=== PATIENT | female | born 1960 | race Caucasian/White ===

== ENCOUNTER 2016-03-01 16:16 | Emergency (ER) | payer MEDICAID ==
[~2016-03-01] VITALS: Ht 170.2 cm; Wt 81.6 kg
[2016-03-01 17:01] VITALS: BP 150/78
[2016-03-01] MEDS ORDERED: ONDANSETRON HCL 4 MG/2 ML VIAL IM ONE (17:15)
[2016-03-01] MEDS ORDERED: MORPHINE SULFATE 4 MG/ML SYRG IM ONE (17:15)
== END 2016-03-01 17:46 | disposition home or self-care (01) ==
LOC: ER 16:24
DX: S82.002D Unspecified fracture of left patella, subsequent encounter for closed fracture with routine healing (principal); E11.9 Type 2 diabetes mellitus without complications; I10 Essential (primary) hypertension; F17.210 Nicotine dependence, cigarettes, uncomplicated; Z88.2 Allergy status to sulfonamides; X58.XXXD Exposure to other specified factors, subsequent encounter
CPT/HCPCS: 96372; 99284; J2270; J2405

== ENCOUNTER 2016-03-26 14:09 | Emergency (ER) | payer MEDICAID ==
[~2016-03-26] VITALS: Ht 170.2 cm; Wt 79.4 kg
[2016-03-26] MEDS ORDERED: KETOROLAC TROMETH 60MG/2ML VIAL IM ONE (15:15)
[2016-03-26 15:30] VITALS: BP 140/85
== END 2016-03-26 16:10 | disposition home or self-care (01) ==
LOC: ER 14:09
DX: S80.01XA Contusion of right knee, initial encounter (principal); W19.XXXA Unspecified fall, initial encounter; Y93.89 Activity, other specified; Y99.8 Other external cause status; Y92.89 Other specified places as the place of occurrence of the external cause; E11.9 Type 2 diabetes mellitus without complications; I10 Essential (primary) hypertension; F17.210 Nicotine dependence, cigarettes, uncomplicated; Z88.6 Allergy status to analgesic agent; Z88.7 Allergy status to serum and vaccine
CPT/HCPCS: 73562; 96372; 99284; J1885

== ENCOUNTER 2016-08-11 18:28 | Emergency (ER) | payer MEDICAID ==
[~2016-08-11] VITALS: Ht 170.2 cm; Wt 91.2 kg
[2016-08-11 20:48] VITALS: BP 160/86
[2016-08-11] MEDS ORDERED: HYDROcodone-ACET 10/325MG TAB PO ONE (21:15)
[2016-08-11] MEDS ORDERED: KETOROLAC TROMETH 60MG/2ML VIAL IM ONE (21:45)
== END 2016-08-11 23:30 | disposition home or self-care (01) ==
LOC: ER 18:32
DX: S80.02XA Contusion of left knee, initial encounter (principal); E11.40 Type 2 diabetes mellitus with diabetic neuropathy, unspecified; I10 Essential (primary) hypertension; F17.210 Nicotine dependence, cigarettes, uncomplicated; Z88.8 Allergy status to other drugs, medicaments and biological substances; Z88.7 Allergy status to serum and vaccine; Z90.710 Acquired absence of both cervix and uterus; Z87.81 Personal history of (healed) traumatic fracture; W18.39XA Other fall on same level, initial encounter; Y93.89 Activity, other specified; Y92.89 Other specified places as the place of occurrence of the external cause; Y99.8 Other external cause status
CPT/HCPCS: 73562; 96372; 99284; J1885

== ENCOUNTER 2016-12-11 18:45 | Emergency (ER) | payer MEDICAID ==
[~2016-12-11] VITALS: Ht 170.2 cm; Wt 83.9 kg
[2016-12-11 19:12] VITALS: BP 182/88
[2016-12-11] MEDS ORDERED: KETOROLAC TROMETH 60MG/2ML VIAL IM ONE (22:30)
[2016-12-15] MEDS ORDERED: BUSP15TA60 PO (08:46)
[2016-12-15] MEDS ORDERED: BACL10TA PO (08:47)
[2016-12-15] MEDS ORDERED: LURA40TA PO (08:51)
[2016-12-15] MEDS ORDERED: INSLANTI SC (08:52)
[2016-12-15] MEDS ORDERED: TRAZ50TA2 PO (08:53)
[2016-12-15] MEDS ORDERED: FLUO-125 PO (08:57)
[2016-12-15] MEDS ORDERED: LISI10TA6 PO (08:57)
[2016-12-15] MEDS ORDERED: INSLISPI SC (08:58)
[2016-12-15] MEDS ORDERED: ALPR-229 PO (11:13)
[2016-12-15] MEDS ORDERED: CALC667C PO (11:13)
== END 2016-12-11 23:10 | disposition home or self-care (01) ==
LOC: ER 18:45
DX: S00.03XA Contusion of scalp, initial encounter (principal); S20.229A Contusion of unspecified back wall of thorax, initial encounter; E11.9 Type 2 diabetes mellitus without complications; I10 Essential (primary) hypertension; F17.210 Nicotine dependence, cigarettes, uncomplicated; Z90.49 Acquired absence of other specified parts of digestive tract; Z88.8 Allergy status to other drugs, medicaments and biological substances; W01.0XXA Fall on same level from slipping, tripping and stumbling without subsequent striking against object, initial encounter; Y93.89 Activity, other specified; Y92.89 Other specified places as the place of occurrence of the external cause; Y99.8 Other external cause status
CPT/HCPCS: 70450; 71010; 96372; 99284; J1885

== ENCOUNTER 2017-03-25 12:09 | Inpatient (IN) | payer MEDICAID ==
[~2017-03-25] VITALS: Ht 170.2 cm; Wt 90.3 kg
[~2017-03-25 12:09] MED LIST: ALPR-229 PO; BACL10TA PO; BUSP15TA60 PO; FLUO-125 PO; INSLANTI SC; INSLISPI SC; LISI-646 PO; LURA40TA PO; TRAZ50TA2 PO
[2017-03-25] MEDS ORDERED: SODIUM CHLORIDE 0.9% 1,000 ML IVB ONE (13:15)
[2017-03-25 13:16] LABS: Basophils # (auto) 0 uL; Basophils % (auto) 0.6 % (0.0-2.0); Eosinophils # (auto) 0 uL; Eosinophils % (auto) 0.7 % (0.0-7.0); Hematocrit 42.5 % (36.0-46.0); Hemoglobin 13.8 g/dL (12.2-16.2); Lymphocytes # (auto) 1.3 uL; Lymphocytes % (auto) 30.7 % (10.0-50.0); Mean Corpuscular Hemoglobin 28.4 pg (28.0-32.0); Mean Corpuscular Hgb Conc. 32.4 g/dL (32.0-36.0); Mean Corpuscular Volume 87.6 fL (80.0-100.0); Monocytes # (auto) 0.6 uL; Monocytes % (auto) 14.3 % (0.0-12.0); Neutrophils # (auto) 2.2 uL; Neutrophils % (auto) 53.7 % (37.0-80.0); Nucleated Red Blood Cells % 0.1 %; Platelet Count (auto) 275 10^3/uL (140-450); Red Blood Cells 4.85 10^6/uL (4.0-5.20); Red Cell Distribution Width 15.8 % (11.8-14.3); White Blood Cell 4.2 10^3/uL (4.4-10.8)
[2017-03-25 13:33] LABS: Alanine Aminotransferase 24 U/L (13-56); Albumin 2.9 g/dL (3.4-5.0); Alkaline Phosphatase 102 U/L (45-117); Anion Gap 5 (5-15); Aspartate Aminotransferase 17 U/L (15-37); Bilirubin, Total 0.1 mg/dL (0.2-1.0); Blood Alcohol < 3.0 mg/dL (0-5); Blood Urea Nitrogen 12 mg/dL (7-18); Calcium 8.2 mg/dL (8.5-10.1); Carbon Dioxide 24 mmol/L (21-32); Chloride 109 mmol/L (98-107); GFR African American 88 mL/min; GFR Non-African American 73 mL/min; Glucose 243 mg/dL (74-106); Magnesium 2.6 mg/dL (1.6-2.6); Potassium 4.5 mmol/L (3.5-5.1); Sodium 138 mmol/L (136-145); Total Protein 6.9 g/dL (6.4-8.2)
[2017-03-25 13:37] LABS: Acetaminophen < 2.0 ug/mL (10-30); Salicylate 2.8 mg/dL (2.8-20.0)
[2017-03-25 15:04] LABS: Urine Bacteria MOD /hpf (None Seen); Urine Blood Negative /uL (Negative); Urine Specific Gravity 1.006 (1.001-1.035); Urine WBC 2 /hpf (0 - 5)
[2017-03-25 15:39] LABS: Alcohol, Urine < 3.0 mg/dL (0-5); Amphetamine Screen, Urine NEGATIVE (NEGATIVE); Barbiturate Scree,Urine NEGATIVE (NEGATIVE); Cannabinoid Screen, Urine NEGATIVE (NEGATIVE); Cocaine Screen, Urine NEGATIVE (NEGATIVE); Opiate Scree,Urine NEGATIVE (NEGATIVE); Phencyclidine Screen, Urine NEGATIVE (NEGATIVE)
[2017-03-25 16:25] LABS: Benzodiazephine Screen, Urine POSITIVE (NEGATIVE)
[2017-03-25] MEDS ORDERED: ONDANSETRON HCL 4 MG/2 ML VIAL ONE (17:20)
[2017-03-25] MEDS ORDERED: ONDANSETRON HCL 4 MG/2 ML VIAL IV ONE (17:30)
[2017-03-25] MEDS ORDERED: DEXTROSE 50% SYRINGE 50 ML IV ONE (17:36)
[2017-03-25] MEDS ORDERED: DEXTROSE (50%) 50ML SYRG IV ONE (17:45)
[2017-03-25] MEDS ORDERED: KETOROLAC TROMETH 30 MG/ML 1ML VIAL IV ONE (18:15)
[2017-03-25] MEDS ORDERED: SODIUM CHLORIDE 0.9% 500 ML IV ONE (21:30)
[2017-03-25] MEDS: SODIUM CHLORIDE 0.9% 1,000 ML IV SCH (21:55)
[2017-03-25] MEDS: busPIRone HCL 10 MG TAB PO SCH (22:02)
[2017-03-25] MEDS: LISINOPRIL 20 MG TAB PO SCH (22:02)
[2017-03-25] MEDS: FAMOTIDINE 20 MG TAB PO SCH (22:02)
[2017-03-25 22:25] VITALS: BP 141/86
[2017-03-25] MEDS: ACETAMINOPHEN 325 MG TAB PO PRN (22:43)
[2017-03-25] MEDS: HYDROcodone-ACET 5/325MG TAB PO PRN (22:50)
[2017-03-25 22:57] VITALS: BP 141/86
[2017-03-26] VITALS (7 sets, daily range): BP systolic 141–170; BP diastolic 77–97
[2017-03-26] MEDS: TEMAZEPAM 15 MG CAP PO PRN ×2 (00:14→23:01)
[2017-03-26] MEDS ORDERED: LISI10TA6 PO (02:50)
[2017-03-26] MEDS ORDERED: IBUP800T24 PO (02:50)
[2017-03-26] MEDS ORDERED: OMEP20CA74 PO (02:50)
[2017-03-26] MEDS ORDERED: AMIT25TA9 PO (02:50)
[2017-03-26] MEDS ORDERED: INSLISPI SC (02:50)
[2017-03-26] MEDS ORDERED: CIPR-217 PO (02:50)
[2017-03-26] MEDS ORDERED: VARE1TAB PO (02:50)
[2017-03-26] MEDS ORDERED: GABA-339 PO (02:50)
[2017-03-26] MEDS: HYDROcodone-ACET 5/325MG TAB PO PRN ×2 (03:49→08:05)
[2017-03-26] MEDS ORDERED: PNEUMOCOCCAL VACC POLYS 25 MCG/0.5 ML VIAL IM ONE (06:00)
[2017-03-26 06:57] LABS: Basophils # (auto) 0 uL; Basophils % (auto) 0.5 % (0.0-2.0); Eosinophils # (auto) 0.1 uL; Hematocrit 42.2 % (36.0-46.0); Hemoglobin 13.9 g/dL (12.2-16.2); Lymphocytes # (auto) 1.1 uL; Lymphocytes % (auto) 20.2 % (10.0-50.0); Mean Corpuscular Hemoglobin 28.8 pg (28.0-32.0); Mean Corpuscular Hgb Conc. 32.9 g/dL (32.0-36.0); Mean Corpuscular Volume 87.5 fL (80.0-100.0); Monocytes # (auto) 0.6 uL; Monocytes % (auto) 10.2 % (0.0-12.0); Neutrophils # (auto) 3.8 uL; Neutrophils % (auto) 67.1 % (37.0-80.0); Platelet Count (auto) 291 10^3/uL (140-450); Red Blood Cells 4.83 10^6/uL (4.0-5.20); Red Cell Distribution Width 15.8 % (11.8-14.3); White Blood Cell 5.7 10^3/uL (4.4-10.8)
[2017-03-26 07:16] LABS: Albumin 2.9 g/dL (3.4-5.0)
[2017-03-26 07:22] LABS: Bilirubin, Total 0.2 mg/dL (0.2-1.0); Total Protein 6.8 g/dL (6.4-8.2)
[2017-03-26] MEDS: FAMOTIDINE 20 MG TAB PO SCH ×2 (09:53→22:51)
[2017-03-26] MEDS: ONDANSETRON HCL 4 MG/2 ML VIAL IV PRN ×2 (09:54→15:17)
[2017-03-26] MEDS: FLUoxetine HCL 20 MG CAP PO SCH (09:54)
[2017-03-26] MEDS: LISINOPRIL 20 MG TAB PO SCH ×2 (09:54→22:53)
[2017-03-26] MEDS: busPIRone HCL 10 MG TAB PO SCH ×2 (09:55→22:51)
[2017-03-26] MEDS: SODIUM CHLORIDE 0.9% 1,000 ML IV SCH ×3 (09:57→18:32)
[2017-03-26] MEDS ORDERED: DEXTROSE (50%) 50ML SYRG IV PRN (11:00)
[2017-03-26] MEDS ORDERED: SODIUM CHLORIDE 0.9% 1,000 ML IV SCH (11:15)
[2017-03-26 11:30] LABS: Potassium 4.5 mmol/L (3.5-5.1)
[2017-03-26] MEDS: ACCU-CHEK COMFORT CURVE STRIP VI SCH ×3 (11:39→22:53)
[2017-03-26] MEDS: InsuLIN REG 1unit/0.01ml Soln (100units/ml) SC SCH ×3 (11:39→22:53)
[2017-03-26] MEDS ORDERED: HYDROcodone-ACET 10/325MG TAB PO PRN (11:45)
[2017-03-26] MEDS: HYDROcodone-ACET 10/325MG TAB PO PRN ×3 (12:03→22:54)
[2017-03-26] MEDS: ACETAMINOPHEN 325 MG TAB PO PRN (17:41)
[2017-03-27] MEDS: SODIUM CHLORIDE 0.9% 1,000 ML IV SCH ×3 (01:00→13:15)
[2017-03-27] MEDS ORDERED: ALBUTEROL SULF 2.5 MG/0.5ML(0.5%) NEB SOLN NEB STA (02:54)
[2017-03-27] MEDS ORDERED: IBUPROFEN 600 MG TAB PO ONE (03:00)
[2017-03-27] MEDS: MORPHINE SULFATE 4 MG/ML SYR/VIAL IV PRN ×5 (03:24→20:28)
[2017-03-27 03:30] VITALS: BP 146/80
[2017-03-27] MEDS: DOXYCYCLINE HYC 100MG/250ML 250 ML IV SCH ×3 (03:49→22:27)
[2017-03-27 04:57] VITALS: BP 158/95
[2017-03-27] MEDS: InsuLIN REG 1unit/0.01ml Soln (100units/ml) SC SCH ×5 (06:38→22:00)
[2017-03-27] MEDS: ACCU-CHEK COMFORT CURVE STRIP VI SCH ×4 (06:38→21:28)
[2017-03-27 06:50] LABS: Basophils # (auto) 0 uL; Basophils % (auto) 0.4 % (0.0-2.0); Eosinophils # (auto) 0 uL; Eosinophils % (auto) 0.3 % (0.0-7.0); Hematocrit 39.3 % (36.0-46.0); Hemoglobin 12.9 g/dL (12.2-16.2); Lymphocytes # (auto) 1.2 uL; Lymphocytes % (auto) 17.7 % (10.0-50.0); Mean Corpuscular Hemoglobin 28.6 pg (28.0-32.0); Mean Corpuscular Hgb Conc. 32.8 g/dL (32.0-36.0); Mean Corpuscular Volume 87.3 fL (80.0-100.0); Monocytes # (auto) 0.6 uL; Monocytes % (auto) 8.3 % (0.0-12.0); Neutrophils # (auto) 4.8 uL; Neutrophils % (auto) 73.3 % (37.0-80.0); Nucleated Red Blood Cells % 0.1 %; Platelet Count (auto) 265 10^3/uL (140-450); Red Cell Distribution Width 15.4 % (11.8-14.3); White Blood Cell 6.6 10^3/uL (4.4-10.8)
[2017-03-27 07:10] LABS: BUN/Creatinine Ratio 11.1; Calcium 7.7 mg/dL (8.5-10.1); Potassium 4.5 mmol/L (3.5-5.1)
[2017-03-27] MEDS: FAMOTIDINE 20 MG TAB PO SCH ×2 (08:23→22:25)
[2017-03-27] MEDS: FLUoxetine HCL 20 MG CAP PO SCH (08:23)
[2017-03-27] MEDS: busPIRone HCL 10 MG TAB PO SCH ×2 (08:24→22:25)
[2017-03-27] MEDS: LISINOPRIL 20 MG TAB PO SCH ×2 (08:24→22:25)
[2017-03-27 09:00] VITALS: BP 153/75
[2017-03-27] MEDS: ALBUTEROL SULF 2.5 MG/0.5ML(0.5%) NEB SOLN NEB PRN (09:14)
[2017-03-27 13:00] VITALS: BP 162/86
[2017-03-27] MEDS ORDERED: cloNIDine HCL 0.1 MG TAB PO PRN (13:15)
[2017-03-27] MEDS: guaiFENesin-DM 100/10mg/5ml SYR PO PRN ×2 (13:30→21:25)
[2017-03-27] MEDS ORDERED: IPRATROPIUM BROM 0.5 MG/2.5ML INH SOL NEB PRN (13:30)
[2017-03-27 17:00] VITALS: BP 147/72
[2017-03-27 21:41] VITALS: BP 137/72
[2017-03-27] MEDS ORDERED: INSULIN LANTUS (GLARGINE) 1 /0.01ml (100units/ml) SC SCH (22:00)
[2017-03-28] MEDS: MORPHINE SULFATE 4 MG/ML SYR/VIAL IV PRN ×4 (00:33→12:37)
[2017-03-28] MEDS: guaiFENesin-DM 100/10mg/5ml SYR PO PRN (04:42)
[2017-03-28 05:00] VITALS: BP 159/73
[2017-03-28 05:58] LABS: BUN/Creatinine Ratio 10.3; Calcium 8.2 mg/dL (8.5-10.1); Potassium 4.4 mmol/L (3.5-5.1)
[2017-03-28] MEDS: ACCU-CHEK COMFORT CURVE STRIP VI SCH ×2 (06:40→11:54)
[2017-03-28] MEDS: InsuLIN REG 1unit/0.01ml Soln (100units/ml) SC SCH ×2 (06:40→11:54)
[2017-03-28] MEDS: SODIUM CHLORIDE 0.9% 1,000 ML IV SCH (06:40)
[2017-03-28 09:00] VITALS: BP 161/95
[2017-03-28] MEDS: ALBUTEROL SULF 2.5 MG/0.5ML(0.5%) NEB SOLN NEB PRN (09:07)
[2017-03-28] MEDS: FLUoxetine HCL 20 MG CAP PO SCH (09:58)
[2017-03-28] MEDS: FAMOTIDINE 20 MG TAB PO SCH (09:58)
[2017-03-28] MEDS: LISINOPRIL 20 MG TAB PO SCH (09:59)
[2017-03-28] MEDS: busPIRone HCL 10 MG TAB PO SCH (09:59)
[2017-03-28] MEDS: DOXYCYCLINE HYC 100MG/250ML 250 ML IV SCH (10:00)
[2017-03-28] MEDS ORDERED: AZIT500T PO (13:10)
[2017-03-28] MEDS ORDERED: LISI-646 PO (13:10)
[2017-03-28] MEDS ORDERED: ALBUAER3 IN (13:10)
[2017-03-28 13:21] VITALS: BP 147/85
[2017-03-28 14:30] VITALS: BP 140/88
[2017-03-28] MEDS: HYDROcodone-ACET 10/325MG TAB PO PRN (15:33)
== END 2017-03-28 16:25 | disposition home or self-care (01) | DRG 812 ==
LOC: ER 12:09 → EDUNIT# 12:09 → OVERFLOW 12:10 → WEST WING 22:25
PROVIDERS: ADMIT Nurse Practitioner; ATTEND Internal Medicine
DX: T42.4X1A Poisoning by benzodiazepines, accidental (unintentional), initial encounter (principal); G92 Toxic encephalopathy; E11.649 Type 2 diabetes mellitus with hypoglycemia without coma; E11.40 Type 2 diabetes mellitus with diabetic neuropathy, unspecified; F20.9 Schizophrenia, unspecified; I10 Essential (primary) hypertension; G89.29 Other chronic pain; M54.9 Dorsalgia, unspecified; F17.210 Nicotine dependence, cigarettes, uncomplicated; F31.9 Bipolar disorder, unspecified; F41.9 Anxiety disorder, unspecified; J20.9 Acute bronchitis, unspecified; M47.816 Spondylosis without myelopathy or radiculopathy, lumbar region; Z79.4 Long term (current) use of insulin; Z82.49 Family history of ischemic heart disease and other diseases of the circulatory system; Z90.710 Acquired absence of both cervix and uterus; Z88.7 Allergy status to serum and vaccine; Z79.899 Other long term (current) drug therapy; Z71.6 Tobacco abuse counseling; Z71.3 Dietary counseling and surveillance
CPT/HCPCS: 36415; 51702; 70450; 71045; 71046; 72131; 80048; 80053; 80307; 80320; 80329; 81001; 82962; 83036; 83605; 83735; 84484; 85025; 85379; 87040; 87070; 87205; 93005; 94640; 94761; 96361; 96374; 96375; J1815; J1885; J2405; J3490

== ENCOUNTER 2017-10-03 17:48 | Emergency (ER) | payer MEDICAID ==
[~2017-10-03] VITALS: Ht 170.2 cm; Wt 81.6 kg
[~2017-10-03 17:48] MED LIST changes: +ALBUAER3 IN; -ALPR-229 PO; +AMIT25TA9 PO; +AZIT500T PO; -BACL10TA PO; +CIPR-217 PO; +GABA-339 PO; +IBUP800T24 PO; -LURA40TA PO; +OMEP20CA74 PO; -TRAZ50TA2 PO; +VARE1TAB PO
[2017-10-03 19:00] LABS: Basophils # (auto) 0.1 uL; Basophils % (auto) 0.8 % (0.0-2.0); Eosinophils # (auto) 0.1 uL; Eosinophils % (auto) 0.9 % (0.0-7.0); Hematocrit 43.4 % (36.0-46.0); Hemoglobin 14.5 g/dL (12.2-16.2); Lymphocytes # (auto) 1.7 uL; Lymphocytes % (auto) 22.7 % (10.0-50.0); Mean Corpuscular Hemoglobin 29.5 pg (28.0-32.0); Mean Corpuscular Hgb Conc. 33.5 g/dL (32.0-36.0); Mean Corpuscular Volume 88.3 fL (80.0-100.0); Monocytes # (auto) 0.6 uL; Monocytes % (auto) 7.9 % (0.0-12.0); Neutrophils # (auto) 5.1 uL; Neutrophils % (auto) 67.7 % (37.0-80.0); Platelet Count (auto) 381 10^3/uL (140-450); Red Blood Cells 4.91 10^6/uL (4.0-5.20); White Blood Cell 7.6 10^3/uL (4.4-10.8)
[2017-10-03 19:19] LABS: Albumin 3.2 g/dL (3.4-5.0); Anion Gap 10 (5-15); Blood Urea Nitrogen 12 mg/dL (7-18); Calcium 8.5 mg/dL (8.5-10.1); Carbon Dioxide 23 mmol/L (21-32); Chloride 102 mmol/L (98-107); Glucose 336 mg/dL (74-106); Magnesium 2.1 mg/dL (1.6-2.6); Sodium 135 mmol/L (136-145)
[2017-10-03 19:22] LABS: Alanine Aminotransferase 22 U/L (13-56); Aspartate Aminotransferase 7 U/L (15-37); BUN/Creatinine Ratio 13.6; GFR African American 85 mL/min; GFR Non-African American 71 mL/min
[2017-10-03 19:27] LABS: Alkaline Phosphatase 109 U/L (45-117); Bilirubin, Total 0.4 mg/dL (0.2-1.0); Total Protein 7.3 g/dL (6.4-8.2)
[2017-10-03] MEDS ORDERED: SODIUM CHLORIDE 0.9% 2,450 ML IV ONE (19:45)
[2017-10-03] MEDS ORDERED: NALBUPHINE HCL 10 MG/1ml INJECTION IV ONE (21:30)
[2017-10-03] MEDS ORDERED: ONDANSETRON HCL 4 MG/2 ML VIAL IV ONE ×2 (21:30→22:45)
[2017-10-03] MEDS ORDERED: MORPHINE SULFATE 4 MG/ML SYR/VIAL IV ONE (22:45)
[2017-10-04 03:45] VITALS: BP 122/64
== END 2017-10-04 01:30 | disposition home or self-care (01) ==
LOC: EDBD 17:48 → ER 17:58
DX: E11.65 Type 2 diabetes mellitus with hyperglycemia (principal); M79.1 Myalgia; I10 Essential (primary) hypertension; Z90.710 Acquired absence of both cervix and uterus; Z88.8 Allergy status to other drugs, medicaments and biological substances; Z79.899 Other long term (current) drug therapy
CPT/HCPCS: 36415; 71045; 74176; 80053; 82962; 83690; 83735; 84484; 85025; 93005; 94761; 96361; 96374; 96375; 96376; 99285; J2270; J2300; J2405; J7030

== ENCOUNTER 2017-10-04 19:05 | Emergency (ER) | payer MEDICAID ==
[~2017-10-04] VITALS: Ht 162.6 cm; Wt 90.7 kg
[2017-10-04] MEDS ORDERED: NALBUPHINE HCL 10 MG/1ml INJECTION IV ONE (21:00)
[2017-10-04] MEDS ORDERED: SODIUM CHLORIDE 0.9% 1,000 ML IV ONE (21:00)
[2017-10-04 21:15] LABS: Basophils # (auto) 0 uL; Basophils % (auto) 0.3 % (0.0-2.0); Eosinophils # (auto) 0.1 uL; Eosinophils % (auto) 1.2 % (0.0-7.0); Hematocrit 40.5 % (36.0-46.0); Hemoglobin 13.5 g/dL (12.2-16.2); Lymphocytes # (auto) 1.8 uL; Lymphocytes % (auto) 28.2 % (10.0-50.0); Mean Corpuscular Hemoglobin 29.4 pg (28.0-32.0); Mean Corpuscular Hgb Conc. 33.3 g/dL (32.0-36.0); Mean Corpuscular Volume 88.5 fL (80.0-100.0); Monocytes # (auto) 0.5 uL; Monocytes % (auto) 8.7 % (0.0-12.0); Neutrophils # (auto) 3.9 uL; Neutrophils % (auto) 61.6 % (37.0-80.0); Nucleated Red Blood Cells % 0.1 %; Platelet Count (auto) 324 10^3/uL (140-450); Red Blood Cells 4.58 10^6/uL (4.0-5.20); Red Cell Distribution Width 14.9 % (11.8-14.3); White Blood Cell 6.3 10^3/uL (4.4-10.8)
[2017-10-04 21:22] LABS: Urine Bacteria NONE SEEN /hpf (None Seen); Urine Blood Negative /uL (Negative); Urine Specific Gravity 1.005 (1.001-1.035); Urine WBC 1 /hpf (0 - 5)
[2017-10-04 21:37] LABS: Albumin 2.9 g/dL (3.4-5.0); Bilirubin, Total 0.2 mg/dL (0.2-1.0); Calcium 8.3 mg/dL (8.5-10.1); Potassium 4.3 mmol/L (3.5-5.1); Total Protein 6.8 g/dL (6.4-8.2)
[2017-10-04] MEDS ORDERED: IOHEXOL 300 MG/ML 100ML BOTTLE IJ ONE (21:43)
[2017-10-04] MEDS ORDERED: GASTROGRAFIN 30 ML SOL ONE (21:43)
[2017-10-05 01:03] VITALS: BP 168/101
[2017-10-05 01:15] LABS: Alcohol, Urine < 3.0 mg/dL (0-5); Amphetamine Screen, Urine NEGATIVE (NEGATIVE); Barbiturate Scree,Urine NEGATIVE (NEGATIVE); Benzodiazephine Screen, Urine POSITIVE (NEGATIVE); Cannabinoid Screen, Urine NEGATIVE (NEGATIVE); Cocaine Screen, Urine NEGATIVE (NEGATIVE); Opiate Scree,Urine NEGATIVE (NEGATIVE); Phencyclidine Screen, Urine NEGATIVE (NEGATIVE)
== END 2017-10-05 01:21 | disposition left against medical advice (07) ==
LOC: EDBD 19:05 → ER 19:10
DX: R10.9 Unspecified abdominal pain (principal); F41.9 Anxiety disorder, unspecified; F32.9 Major depressive disorder, single episode, unspecified; E11.9 Type 2 diabetes mellitus without complications; F17.210 Nicotine dependence, cigarettes, uncomplicated; I10 Essential (primary) hypertension; F20.9 Schizophrenia, unspecified; R11.2 Nausea with vomiting, unspecified; F19.10 Other psychoactive substance abuse, uncomplicated; Z90.710 Acquired absence of both cervix and uterus
CPT/HCPCS: 36415; 74177; 80053; 80307; 81001; 83690; 85025; 96361; 96374; 99285; J2300; Q9963; Q9967

== ENCOUNTER 2018-03-21 11:51 | Emergency (ER) | payer MEDICAID ==
[~2018-03-21] VITALS: Ht 162.6 cm; Wt 81.6 kg
[2018-03-21] MEDS ORDERED: ONDANSETRON ODT 4 MG TAB PO ONE (12:15)
[2018-03-21] MEDS ORDERED: HYDROcodone-ACET 5/325MG TAB ONE (13:38)
[2018-03-21 14:20] VITALS: BP 146/79
[2018-03-21 15:07] LABS: INR 0.94 (0.9-1.15); Partial Thromboplastin Time 27.8 sec (23.78-33.04); Prothrombin Time 10.1 sec (9.27-12.13)
[2018-03-21] MEDS ORDERED: HYDROcodone-ACET 5/325MG TAB PO ONE (15:15)
[2018-03-21] MEDS ORDERED: KETOROLAC TROMETH 30 MG/ML 1ML VIAL ONE (15:23)
[2018-03-21] MEDS ORDERED: SODIUM CHLORIDE 0.9% 1,000 ML IV ONE (15:30)
[2018-03-21] MEDS ORDERED: KETOROLAC TROMETH 30 MG/ML 1ML VIAL IV ONE (15:30)
[2018-03-21 15:38] LABS: Basophils # (auto) 0.1 uL; Basophils % (auto) 0.8 % (0.0-2.0); Eosinophils # (auto) 0.1 uL; Eosinophils % (auto) 1.2 % (0.0-7.0); Hematocrit 51.1 % (36.0-46.0); Lymphocytes # (auto) 2.5 uL; Lymphocytes % (auto) 33.9 % (10.0-50.0); Mean Corpuscular Hemoglobin 28.9 pg (28.0-32.0); Mean Corpuscular Hgb Conc. 31.3 g/dL (32.0-36.0); Mean Corpuscular Volume 92.2 fL (80.0-100.0); Monocytes # (auto) 0.6 uL; Monocytes % (auto) 7.8 % (0.0-12.0); Neutrophils # (auto) 4.1 uL; Neutrophils % (auto) 56.3 % (37.0-80.0); Nucleated Red Blood Cells % 0.2 %; Platelet Count (auto) 254 10^3/uL (140-450); Red Blood Cells 5.54 10^6/uL (4.0-5.20); Red Cell Distribution Width 15.6 % (11.8-14.3); White Blood Cell 7.2 10^3/uL (4.4-10.8)
[2018-03-21 15:51] LABS: Urine Bacteria NONE SEEN /hpf (None Seen); Urine Blood Negative /uL (Negative); Urine Specific Gravity 1.005 (1.001-1.035); Urine WBC <1 /hpf (0 - 5)
[2018-03-21 17:32] LABS: Albumin 3.3 g/dL (3.4-5.0); Anion Gap 11 (5-15); Blood Urea Nitrogen 11 mg/dL (7-18); Calcium 8.6 mg/dL (8.5-10.1); Carbon Dioxide 23 mmol/L (21-32); Chloride 104 mmol/L (98-107); Glucose 237 mg/dL (74-106); Potassium 4.6 mmol/L (3.5-5.1); Sodium 138 mmol/L (136-145)
[2018-03-21 17:34] LABS: BUN/Creatinine Ratio 11.5; GFR African American 77 mL/min; GFR Non-African American 64 mL/min
[2018-03-21 17:37] LABS: Alanine Aminotransferase 29 U/L (13-56); Alkaline Phosphatase 141 U/L (45-117); Aspartate Aminotransferase 25 U/L (15-37); Bilirubin, Total 0.4 mg/dL (0.2-1.0); Total Protein 7.5 g/dL (6.4-8.2)
[2018-03-21] MEDS ORDERED: MECLIZINE HCL 25 MG TAB PO ONE (19:00)
== END 2018-03-21 19:25 | disposition home or self-care (01) ==
LOC: ER 11:51 → EDBD 11:51 → ER 18:52
DX: E11.65 Type 2 diabetes mellitus with hyperglycemia (principal); H81.10 Benign paroxysmal vertigo, unspecified ear; M54.5 Low back pain; K21.9 Gastro-esophageal reflux disease without esophagitis; I10 Essential (primary) hypertension; Z90.710 Acquired absence of both cervix and uterus; F17.210 Nicotine dependence, cigarettes, uncomplicated
CPT/HCPCS: 36415; 70450; 80053; 81001; 83735; 85025; 85610; 85730; 93005; 94761; 96361; 96374; 99284; J1885; J7030; J8597; Q0162

== ENCOUNTER 2019-10-14 18:53 | Emergency (ER) | payer MEDICAID ==
[~2019-10-14] VITALS: Ht 170.2 cm; Wt 70.3 kg
[~2019-10-14 18:53] MED LIST changes: -CIPR-217 PO; +CIPR500T4 PO
[2019-10-14] MEDS ORDERED: ONDANSETRON HCL 4 MG/2 ML VIAL IV ONE (20:00)
[2019-10-14] MEDS ORDERED: SODIUM CHLORIDE 0.9% 1,000 ML IV ONE ×2 (20:00)
[2019-10-14] MEDS ORDERED: KETOROLAC TROMETH 30 MG/ML 1ML VIAL IV ONE (20:00)
[2019-10-14 20:57] LABS: Basophils # (auto) 0.1 10 ^3/uL (0-0.2); Basophils % (auto) 1.2 % (0.0-2.0); Eosinophils # (auto) 0.1 10 ^3/uL (0-0.8); Eosinophils % (auto) 2.4 % (0.0-7.0); Hematocrit 42.1 % (36.0-46.0); Hemoglobin 13.8 g/dL (12.2-16.2); Lymphocytes # (auto) 1.2 10 ^3/uL (0.4-5.4); Lymphocytes % (auto) 21.8 % (10.0-50.0); Mean Corpuscular Hemoglobin 29.8 pg (28.0-32.0); Mean Corpuscular Hgb Conc. 32.8 g/dL (32.0-36.0); Monocytes # (auto) 0.4 10 ^3/uL (0-1.3); Monocytes % (auto) 7.6 % (0.0-12.0); Neutrophils # (auto) 3.7 10 ^3/uL (1.6-8.6); Nucleated Red Blood Cells % 0.2 %; Platelet Count (auto) 398 10^3/uL (140-450); Red Blood Cells 4.63 10^6/uL (4.0-5.20); Red Cell Distribution Width 15.1 % (11.8-14.3); White Blood Cell 5.5 10^3/uL (4.4-10.8)
[2019-10-14 21:00] VITALS: BP 132/78
[2019-10-14] MEDS ORDERED: OXYCODONE W/ ACETAMINOPHEN 5/325MG TABLET PO ONE (21:15)
[2019-10-14 21:18] LABS: INR 0.94 (0.9-1.15); Partial Thromboplastin Time 24.8 sec (23.0-31.2)
[2019-10-14 21:20] LABS: Alanine Aminotransferase 18 U/L (13-56); Albumin 2.7 g/dL (3.4-5.0); Anion Gap 6 (5-15); Aspartate Aminotransferase 11 U/L (15-37); BUN/Creatinine Ratio 11.4; Blood Urea Nitrogen 9 mg/dL (7-18); Calcium 8.6 mg/dL (8.5-10.1); Carbon Dioxide 24 mmol/L (21-32); Chloride 110 mmol/L (98-107); GFR African American 96 mL/min; GFR Non-African American 79 mL/min; Glucose 92 mg/dL (74-106); Magnesium 2.1 mg/dL (1.6-2.6); Potassium 3.9 mmol/L (3.5-5.1); Sodium 140 mmol/L (136-145)
[2019-10-14 21:22] LABS: Alkaline Phosphatase 130 U/L (45-117); Bilirubin, Total 0.3 mg/dL (0.2-1.0); Total Protein 6.5 g/dL (6.4-8.2)
== END 2019-10-14 21:56 | disposition home or self-care (01) ==
LOC: EDBD 18:53 → ER 18:53
DX: E86.0 Dehydration (principal); R53.1 Weakness; G89.4 Chronic pain syndrome; F41.9 Anxiety disorder, unspecified; F32.9 Major depressive disorder, single episode, unspecified; E11.9 Type 2 diabetes mellitus without complications; K21.9 Gastro-esophageal reflux disease without esophagitis; I10 Essential (primary) hypertension; F17.210 Nicotine dependence, cigarettes, uncomplicated; Z85.3 Personal history of malignant neoplasm of breast; Z79.899 Other long term (current) drug therapy; Z88.8 Allergy status to other drugs, medicaments and biological substances; Z88.7 Allergy status to serum and vaccine
CPT/HCPCS: 36415; 71045; 74176; 80053; 83735; 84484; 85025; 85610; 85730; 93005; 96361; 96374; 96375; 99285; J1885; J2405